=== PATIENT | female | born 1955 | race Caucasian/White ===

== ENCOUNTER 2019-05-10 08:38 | Emergency (ER) | payer OTHER ==
[~2019-05-10] VITALS: Ht 154.9 cm; Wt 61.2 kg
[~2019-05-10 08:38] MED LIST: AMITRIPTYLINE H10 M3 PO; CLEOCIN HCL150 MG PO; FLONASE 0.05%50 MCG NASAL; IMITREX100 MG PO; LEVOTHYROXINE 0.1 MG PO; LEXAPRO20 MG PO; LISINOPRIL10 MG PO; POTASSIUM20 PO; PREDNISONE 10 M10 MG PO; PROTONIX40 M1 PO; TOPAMAX 100 MG100 MG PO; XANAX 0.25 MG0.25 MG PO
[2019-05-10] MEDS ORDERED: CELECOXIB100 MG PO (09:00)
[2019-05-10] MEDS ORDERED: LOSARTAN-HCTZ1 EAC3 PO (09:00)
[2019-05-10 09:03] LABS: ABSOLUTE EOSINOPHILS 0.2 thou/uL (0.0-0.7); ABSOLUTE LYMPHOCYTES 1.8 thou/uL (0.8-5.3); ABSOLUTE MONOCYTES 0.4 thou/uL (0.0-1.2); ABSOLUTE NEUTROPHILS 3.2 thou/uL (1.6-8.1); BASOPHILS 0.4 %; HEMATOCRIT 35.5 % (37.0-47.0); HEMOGLOBIN 11.7 gm/dL (12.0-15.0); LYMPHOCYTES 32.9 %; MCH 26.2 pg (26.0-34.0); MCHC 32.8 g/dL (28.0-37.0); MCV 79.8 fL (80.0-100.0); MONOCYTES 6.4 %; MPV 7.8 fl. (7.2-11.1); NUCLEATED RBCS 0 /100WBC; PLATELET COUNT* 269 thou/uL (150-400); POLYS 57.3 %; RBC 4.45 mil/uL (4.20-5.00); RDW-CV 18.2 % (10.5-14.5); WBC 5.6 thou/uL (4.0-11.0)
[2019-05-10 09:15] LABS: PROTIME 10.4 Seconds (9.20-11.50)
[2019-05-10 09:16] LABS: CALCIUM 9.5 mg/dL (8.5-10.1); CREATININE 0.9 mg/dL (0.6-1.3); POTASSIUM 3.6 mmol/L (3.5-5.1)
[2019-05-10 09:29] LABS: ALBUMIN 3.7 g/dL (3.4-5.0); TOTAL BILIRUBIN 0.2 mg/dL (<0.1-1.0); TOTAL PROTEIN 7.3 g/dL (6.4-8.2)
[2019-05-10 10:23] LABS: URINE BILIRUBIN NEGATIVE (Negative); URINE BLOOD TRACE (Negative); URINE CLARITY CLEAR; URINE COLOR STRAW; URINE GLUCOSE-RANDOM NEGATIVE (Negative); URINE KETONES NEGATIVE (Negative); URINE LEUKOCYTES-REFLEX NEGATIVE (Negative); URINE NITRITE-REFLEX NEGATIVE (Negative); URINE PROTEIN NEGATIVE (Negative); URINE SPECIFIC GRAVITY <= 1.005 (1.005-1.030); URINE UROBILINOGEN 0.2 E.U./dl (0.2-1.0)
[2019-05-10 11:26] VITALS: BP 140/84
--- NOTE | 2019-05-10 15:37 | EKG ---
[place] [address] ELECTROCARDIOGRAM REPORT Name: CHEIKH JOSEPH Room: [facility]#: [id number] Admission: 05/10/19 Attend Phys: Discharge: 05/10/19 Date of : 57 Report #: [id number] THIS REPORT FOR: //name// [facility] ED Test Date: 2019-05-10 Test Time: 08:43:38 Pat Name: CHEIKH JOSEPH Department: Room: Gender: F [employer]: : 1955 Requested By: Tricia Maurer Order Number: [id number] MD: Mauro Rubin Measurements Intervals [place] Rate: 94 P: 47 CO: 167 QRS: 50 QRSD: 100 T: 3 QT: 374 QTc: 468 Interpretive Statements Sinus rhythm Baseline wander in lead(s) II,aVF No previous ECG available for comparison Electronically Signed On 05-10-2019 15:37:06 CDT by Mauro Rubin [email or web address] <ELECTRONICALLY SIGNED> By: Krys Rubin MD, [facility] 05/10/19 [id number] Krys Rubin MD, FACC /EPI
== END 2019-05-10 11:26 | disposition home or self-care (01) ==
LOC: M.ERS 08:38
PROVIDERS: Personal Emergency Response Attendant
DX: R20.0 Anesthesia of skin (principal); R20.2 Paresthesia of skin; R42 Dizziness and giddiness; R07.89 Other chest pain; E03.9 Hypothyroidism, unspecified; G43.909 Migraine, unspecified, not intractable, without status migrainosus; Z88.2 Allergy status to sulfonamides; Z90.710 Acquired absence of both cervix and uterus